=== PATIENT | female | born 1960 | race Caucasian/White ===

== ENCOUNTER 2016-07-13 15:58 | Emergency (ER) | payer OTHER ==
[~2016-07-13] VITALS: Ht 149.9 cm; Wt 79.2 kg
[2016-07-13 16:55] LABS: BLOOD UREA NITROGEN 13 mg/dL (7-18)
[2016-07-13 16:58] LABS: ASPARTATE AMINO TRANSFERASE 42 U/L (15-37)
[2016-07-13 18:15] VITALS: BP 99/63
== END 2016-07-13 18:18 | disposition home or self-care (01) ==
LOC: ED 18:12
DX: K80.20 Calculus of gallbladder without cholecystitis without obstruction (principal); R30.0 Dysuria
CPT/HCPCS: 36415; 76700; 80053; 81003; 85025

== ENCOUNTER 2016-09-01 11:10 | Day surgery (SDC) | payer MEDICARE, OTHER ==
[~2016-09-01] VITALS: Ht 149.9 cm; Wt 80.0 kg
[~2016-09-01 11:10] MED LIST: ALBU8.5H3 INH; ASCO100072 PO; BUPIVACAINE/PF-EPI 0.5% 1:200K ONE; DIAZ10TA4 PO; ESTR1TAB15 PO; GABA100C8 PO; HYDR-3144 PO; Iron PO; MULT-516 PO
[2016-09-01 11:30] VITALS: BP 120/81
[2016-09-01] MEDS ORDERED: LACTATED RINGERS 1,000 ML IV SCH ×2 (11:32→14:38)
[2016-09-01] MEDS ORDERED: LIDOCAINE 1%, 2ML SQ PRN (12:30)
[2016-09-01] MEDS ORDERED: FENTANYL PF 250 MCG/5ML ONE (13:35)
[2016-09-01] MEDS ORDERED: MIDAZOLAM 1 MG/ML, 2ML ONE (13:35)
[2016-09-01] MEDS ORDERED: KETOROLAC 30 MG/1 ML ONE (13:57)
[2016-09-01] MEDS ORDERED: PROPOFOL 10 MG/ML, 20ML ONE (13:57)
[2016-09-01] MEDS ORDERED: NEOSTIGMINE 1 MG/ML, 10ML ONE (13:57)
[2016-09-01] MEDS ORDERED: GLYCOPYRROLATE 0.2MG/1ML ONE (13:57)
[2016-09-01] MEDS ORDERED: SUCCINYLCHOLINE 20 MG/ML, 10ML ONE (13:57)
[2016-09-01] MEDS ORDERED: DEXAMETHASONE 4 MG/ML, 1ML ONE (13:57)
[2016-09-01] MEDS ORDERED: ROCURONIUM 10 MG/ML ONE (13:57)
[2016-09-01] MEDS ORDERED: ONDANSETRON 2MG/ML, 2ML ONE (13:57)
[2016-09-01] MEDS ORDERED: CEFAZOLIN 1,000 MG ONE (13:57)
[2016-09-01] MEDS ORDERED: ACETAMINOPHEN 325 MG TABLET PO PRN (14:30)
[2016-09-01] MEDS ORDERED: HYDROmorphone 1 MG/ML, 1ML IV PRN (14:30)
[2016-09-01] MEDS ORDERED: LABETALOL 5MG/ML, 20ML IV PRN (14:30)
[2016-09-01] MEDS ORDERED: EPHEDRINE 50 MG/ML, 1ML IVPush PRN (14:30)
[2016-09-01] MEDS ORDERED: MIDAZOLAM 1 MG/ML, 2ML IV PRN (14:30)
[2016-09-01] MEDS ORDERED: MEPERIDINE/PF 25MG/0.5ML IVPush PRN (14:30)
[2016-09-01] MEDS ORDERED: HYDROcodone/APAP 7.5-325MG/15ML UDC PO PRN (14:30)
[2016-09-01] MEDS ORDERED: hydrALAzine 20 MG/ML, 1ML IV PRN (14:30)
[2016-09-01] MEDS ORDERED: ONDANSETRON 2MG/ML, 2ML IVPush PRN ×2 (14:30→15:00)
[2016-09-01] MEDS ORDERED: PROMETHAZINE 25 MG/ML, 1ML IV PRN (14:30)
[2016-09-01] MEDS ORDERED: OXYcodone 5 MG/5 ML ORAL.SOL UDC PO PRN (14:30)
[2016-09-01] MEDS ORDERED: FENTANYL PF 100 MCG/2ML ONE (14:39)
[2016-09-01] MEDS ORDERED: OXYcodone 5 MG/5 ML ORAL.SOL UDC ONE (14:40)
[2016-09-01] MEDS: FENTANYL PF 100 MCG/2ML IV PRN ×2 (14:42→15:09)
[2016-09-01] MEDS ORDERED: HYDROcodone/APAP 5/325 TABLET PO PRN (15:00)
[2016-09-01] MEDS ORDERED: morphine SULFATE 10 MG/ML, 1ML IVPush PRN (15:00)
== END 2016-09-01 17:15 | disposition home or self-care (01) ==
LOC: OUT 11:10
PROVIDERS: ATTEND Thoracic Surgery (Cardiothoracic Vascular Surgery)
DX: K80.10 Calculus of gallbladder with chronic cholecystitis without obstruction (principal); D50.9 Iron deficiency anemia, unspecified; F41.9 Anxiety disorder, unspecified; M19.90 Unspecified osteoarthritis, unspecified site; G43.009 Migraine without aura, not intractable, without status migrainosus; F32.9 Major depressive disorder, single episode, unspecified; Z88.0 Allergy status to penicillin; Z88.8 Allergy status to other drugs, medicaments and biological substances; Z72.89 Other problems related to lifestyle; Z87.891 Personal history of nicotine dependence; Z85.118 Personal history of other malignant neoplasm of bronchus and lung; Z82.61 Family history of arthritis; Z82.3 Family history of stroke; Z82.0 Family history of epilepsy and other diseases of the nervous system; Z80.1 Family history of malignant neoplasm of trachea, bronchus and lung
CPT/HCPCS: 47562; 88304; J0330; J0690; J1100; J1885; J2250; J2405; J2704; J2710; J3010; J3490; J7120

== ENCOUNTER 2017-07-03 11:51 | Emergency (ER) | payer OTHER ==
[~2017-07-03] VITALS: Ht 149.9 cm; Wt 74.1 kg
[~2017-07-03 11:51] MED LIST changes: -ALBU8.5H3 INH; +ALBU8.5H8 INH; -BUPIVACAINE/PF-EPI 0.5% 1:200K ONE; +GABA-826 PO; -GABA100C8 PO; -HYDR-3144 PO; +HYDR-3245 PO
[2017-07-03] MEDS ORDERED: LEVO25TA4 PO (12:31)
[2017-07-03] MEDS ORDERED: OXYC-302 PO (12:31)
[2017-07-03] MEDS ORDERED: PRED10TA14 PO (12:32)
[2017-07-03] MEDS ORDERED: VITA1CAP PO (12:33)
[2017-07-03 12:49] LABS: BASOPHILS % (AUTO) 0 % (0-1); EOSINOPHILS # (AUTO) 0.03 x10^3/uL (0-0.4); EOSINOPHILS % (AUTO) 0 % (1-7); LYMPHOCYTES # (AUTO) 0.56 x10^3/uL (1-3.4); LYMPHOCYTES % (AUTO) 5 % (22-44); MD NO; MEAN CORPUSCULAR HEMOGLOBIN 29.8 pg (27.0-34.8); MEAN CORPUSCULAR HGB CONC 33.4 g/dL (32.4-35.8); MEAN CORPUSCULAR VOLUME 89.2 fL (80-100); MEAN PLATELET VOLUME 6.8 fL (7.4-10.4); MONOCYTES # (AUTO) 0.18 x10^3/uL (0.2-0.8); MONOCYTES % (AUTO) 2 % (2-9); NEUTROPHILS # (AUTO) 10.27 x10^3/uL (1.8-6.8); NEUTROPHILS % (AUTO) 93 % (42-75); PLATELET COUNT 223 x10^3/uL (130-400); RED BLOOD COUNT 4.64 x10^6/uL (3.82-5.3); RED CELL DISTRIBUTION WIDTH 15.3 % (9.6-15.2)
[2017-07-03 12:59] LABS: ALBUMIN 3.3 g/dL (3.4-5.0); ANION GAP 8 mmol/L (5-15); CALCIUM 9.5 mg/dL (8.5-10.1); CHLORIDE 108 mmol/L (98-107); CREATININE 1.16 mg/dL (0.55-1.02)
[2017-07-03] MEDS ORDERED: ALBUTEROL/IPRATROPIUM 2.5MG/0.5MG, 3 ML NPPB ONE (14:00)
[2017-07-03] MEDS ORDERED: ALBUTEROL/IPRATROPIUM 2.5MG/0.5MG, 3 ML ONE (14:02)
[2017-07-03 14:46] VITALS: BP 108/63
== END 2017-07-03 15:14 | disposition home or self-care (01) ==
LOC: ED 13:17
DX: J18.1 Lobar pneumonia, unspecified organism (principal); J98.01 Acute bronchospasm; Z87.891 Personal history of nicotine dependence; Z85.118 Personal history of other malignant neoplasm of bronchus and lung
CPT/HCPCS: 36415; 71046; 80048; 82040; 85025; 94640; 99285; J7620